=== PATIENT | female | born 1980 | race Caucasian/White ===

== ENCOUNTER → 2020-07-27 | Outpatient (REF) | payer BC ==
[2020-07-27 12:03] LABS: BASO % 0.7 % (0.0-1.0); EOS # 0.4 10^3/uL (0.0-0.5); HEMATOCRIT 45.4 % (36.0-47.0); HEMOGLOBIN 14.8 g/dl (12.0-15.5); LYMPH # 1.4 10^3/uL (1.5-5.0); LYMPH % 24.9 % (24.0-44.0); MEAN CORPUSCULAR HEMOGLOBIN 28.8 pg (27.0-33.0); MEAN CORPUSCULAR HGB CONC 32.6 g/dl (32.0-36.5); MEAN CORPUSCULAR VOLUME 88.5 fl (80.0-96.0); MONO # 0.4 10^3/uL (0.0-0.8); MONO % 7.2 % (2.0-8.0); NEUTROPHILS # 3.2 10^3/uL (1.5-8.5); NEUTROPHILS % 59.8 % (36.0-66.0); PLATELET COUNT, AUTOMATED 309 10^3/uL (150-450); RED BLOOD COUNT 5.13 10^6/uL (4.00-5.40); WHITE BLOOD COUNT 5.4 10^3/uL (4.0-10.0)
[2020-07-27 12:28] LABS: ERYTHROCYTE SEDIMENTATION RATE 14 mm/hr (0-20); HEMOGLOBIN A1c 6.1 %
[2020-07-27 12:44] LABS: ALT/SGPT 23 U/L (12-78); BILIRUBIN,TOTAL 0.3 MG/DL (0.2-1.0); BLOOD UREA NITROGEN 11 MG/DL (7-18); CALCIUM LEVEL 9.3 MG/DL (8.5-10.1); CARBON DIOXIDE LEVEL 29 MEQ/L (21-32); CHLORIDE LEVEL 105 MEQ/L (98-107); CHOLESTEROL LEVEL 225 MG/DL (<200); CHOLESTEROL RISK RATIO 4.591 (<5); CREATININE FOR GFR 0.59 MG/DL (0.55-1.30); FREE T4 0.96 NG/DL (0.76-1.46); GLOMERULAR FILTRATION RATE > 60.0 (>58); GLUCOSE, FASTING 88 MG/DL (70-100); HDL CHOLESTEROL 49 MG/DL (>40); LDL CHOLESTEROL 153 MG/DL (<100); NON-HDL-C 176 MG/DL; RHEUMATOID FACTOR QUANT < 10.0 IU/ML (<15.0); SODIUM LEVEL 141 MEQ/L (136-145); TOTAL 25(OH) VITAMIN D 20.2 NG/ML (30.0-100.0); TOTAL PROTEIN 7.4 GM/DL (6.4-8.2); TRIGLYCERIDES LEVEL 116 MG/DL (<150)
== END ==
LOC: M SFHCPLAZ 10:01
PROVIDERS: ATTEND Nurse Practitioner Family
DX: M06.9 Rheumatoid arthritis, unspecified (principal); Z13.228 Encounter for screening for other metabolic disorders; Z13.1 Encounter for screening for diabetes mellitus; Z13.220 Encounter for screening for lipoid disorders; E55.9 Vitamin D deficiency, unspecified

== ENCOUNTER → 2020-08-04 | Outpatient (CLI) | payer BC ==
--- NOTE | 2020-08-04 14:44 | REP ---
INDICATION: Z12.39 SCREENING MAMMO. COMPARISON: None. TECHNIQUE: MLO and CC views bilateral breasts performed with tomosynthesis. FINDINGS: There is moderate heterogeneous fibroglandular tissue scattered bilaterally. In the medial aspect of the right breast posteriorly there is an irregular asymmetric nodular opacity which measures approximately 2.1 cm in maximum diameter. No other mass or architectural distortion is seen. No clustered microcalcifications are seen. [place] breast density is B. IMPRESSION: BIRADS/ACR category 0, incomplete. The medial right breast posteriorly there is an irregular asymmetric nodular opacity 2.1 cm in diameter. Recommend spot compression views and ultrasound to further evaluate. This patient's Tyrer-Cuzick lifetime breast cancer risk assessment score is 13.3%. This mammogram was interpreted with the aid of an FDA-approved computer-aided detection system. The patient states she had a clinical breast exam in over 1 year ago. The patient letter being requested is M0. RECOMMENDATION: Recommend spot compression views and ultrasound right breast. <Electronically signed by Terry Carrillo > 08/04/20 [id number]
== END ==
LOC: M WHC 13:25
PROVIDERS: ATTEND Nurse Practitioner Family
DX: Z12.31 Encounter for screening mammogram for malignant neoplasm of breast (principal); N63.10 Unspecified lump in the right breast, unspecified quadrant

== ENCOUNTER → 2020-08-29 | Outpatient (CLI) | payer BC ==
--- NOTE | 2020-08-29 15:47 | REP ---
INDICATION: ADDITIONAL VIEWS BREAST; ADDITIONAL VIEWS RT BREAST. COMPARISON: 08/04/2020. TECHNIQUE: Spot compression views and mL tomographic sequence right breast performed, as well as focused right breast ultrasound. FINDINGS: Irregular 2 cm nodule is confirmed in the upper inner right breast. Focused right breast ultrasound in this region demonstrates an irregular hypoechoic nodule 2.0 x 1.0 x 1.1 cm. This is suspicious. Incidentally noted is a cyst at 12 o'clock measuring 7 x 3 x 7 mm. IMPRESSION: BIRADS/ACR category 4, suspicious. 2 cm irregular nodule appears to be solid by ultrasound, located in the upper inner right breast. Recommend ultrasound-guided biopsy with postprocedure mammogram. This mammogram was interpreted with the aid of an FDA-approved computer-aided detection system. The patient letter being requested is M4. RECOMMENDATION: Recommend ultrasound-guided biopsy right breast with postprocedure mammogram. <Electronically signed by Terry Carrillo > 08/29/20 [id number]
== END ==
LOC: M WHC 14:01
PROVIDERS: ATTEND Nurse Practitioner Family
DX: Z12.39 Encounter for other screening for malignant neoplasm of breast (principal); R92.8 Other abnormal and inconclusive findings on diagnostic imaging of breast

== ENCOUNTER → 2020-09-05 | Outpatient (REF) | payer BC | LOC: M PLALAB 14:52 | PROVIDERS: ATTEND Obstetrics & Gynecology | DX: Z12.4 Encounter for screening for malignant neoplasm of cervix (principal) ==

== ENCOUNTER → 2020-09-13 | Outpatient (CLI) | payer BC ==
[~2020-09-13] MED LIST: NAPR-1010 PO; PLAQ200T4 PO
[2020-09-13 09:07] VITALS: BP 110/76
--- NOTE | 2020-09-13 09:30 | REP ---
INDICATION: R92.8 ABN RT MAMMO,POST US GUIDED BIOPSY. COMPARISON: 08/29/2020. TECHNIQUE: ML and CC views right breast performed following ultrasound-guided biopsy of a nodule in medial right breast. FINDINGS: Biopsy clip is seen within the irregular nodule in the medial right breast. IMPRESSION: Successful ultrasound-guided biopsy of right breast nodule. RECOMMENDATION: Clinical follow-up. <Electronically signed by Terry Carrillo > 09/13/20 [id number]
--- NOTE | 2020-09-13 17:12 | REP ---
INDICATION: R92.8 ABN RT MAMMO,US GUIDED BIOPSY. COMPARISON: None. TECHNIQUE: The procedure was performed under the direct supervision of Dr. Carrillo. The patient has a history of a 2 x 1 x 1.1 cm irregular hypoechoic nodule in the upper inner right breast seen on a previous ultrasound dated 08/29/2020. The risks and benefits of the procedure were explained to the patient and informed consent was obtained. The right breast nodule was localized using ultrasound guidance. The skin was prepped and draped in a sterile fashion. 1% Xylocaine was used as a local anesthetic. Using ultrasound guidance a 14 gauge coaxial needle biopsy system was inserted and6 core biopsy samples were obtained. A marker clip (HydroMARK shape 3) was placed at the biopsy site The patient tolerated the procedure well and there were no immediate complications. After the appropriate amount of monitored convalescence, the patient was discharged from the department. FINDINGS: None IMPRESSION: Ultrasound-guided right breast biopsy with clip placement. (HydroMARK shape 3) <Electronically signed by Derrick Franklin > 09/13/20 [id number] <Electronically signed by Terry Carrillo > 09/13/20 [id number]
== END ==
LOC: M WHCPRO 06:51
PROVIDERS: ATTEND Nurse Practitioner Family
DX: D05.11 Intraductal carcinoma in situ of right breast (principal)

== ENCOUNTER → 2020-09-28 | Outpatient (CLI) | payer BC ==
[~2020-09-28] MED LIST changes: +LIDOCAINE 1% MDV 20ML VIAL As Ordered ONE; +MIDAZOLAM INJ 2MG/2ML VIAL (J2250 PER 1MG) As Ordered ONE; +ceFAZolin 2 GM/D5W 50 ML IV BAG (J0690 PER 500MG) As Ordered ONE; +diphenhydrAMINE 50MG/ML VIAL (J1200) As Ordered ONE; +fentaNYL 100 MCG/2 ML INJECTION (J3010) As Ordered ONE
--- NOTE | 2020-09-28 14:03 | IRHP ---
[facility] IR Pre-Procedure H & P General Date of Service: September 28, 2020 Procedure: Same Day Surgery Interval History and Physical I have seen the patient and reviewed last H & P performed within 30 days. There is no significant interval change. History of Present Illness Chief Complaint The patient is a 40-year-old female admitted with a reason for visit of Breast Ca. PRE-PROCEDURE DIAGNOSIS: Right-sided breast cancer HEART: Normal rate. LUNGS: Normal breathing at rest. ASA Classification ASA Classification: II-Mild systemic disease Mallampati Score: II NPO: Yes Problems with prior sedation: No Obstructive Sleep Apnea: No Plan moderate sedation Allergies Coded Allergies: No Known Allergies (Verified , 09/13/20) Home Medications Miscellaneous Medications Hydroxychloroquine Sulfate (Plaquenil), 200 MG PO, (Reported) Naproxen Sodium (Naproxen Sodium), 220 MG PO, (Reported) VS, I&O, 24H, Fishbone Vital Signs/I&O Vital Signs Date Time Temp Pulse Resp B/P (MAP) Pulse Ox O2 Delivery O2 Flow Rate FiO2 09/28/20 13:30 97.0 84 20 98 Room Air BREONNA ORELLANA MD September 28, 2020 14:03
--- NOTE | 2020-09-28 14:54 | IRPON ---
IR Postoperative Note Date Of Procedure: September 28, 2020 Time Of Procedure: 14:51 IR Postoperative Note IR Ultrasound and fluoroscopy guided port placement. IR Ultrasound of the neck. IR Moderate sedation. Clinical indication: Right-sided breast cancer. Physician: Dr. Mann. Procedure: The patient was advised of the benefits, risks, and alternatives of the procedure and informed consent was obtained. A time-out was performed with verification of the patient's name, MRN, site of procedure and type of procedure to be performed. The patient was positioned in the supine position on the angiographic table. The site was prepped and draped in the usual sterile fashion. Moderate sedation was performed by the physician including the presence of an independent trained RN, who assisted and monitored the patient's level of consciousness and physiologic status. Following the administration of fentanyl and Versed , the physician spent 45 minutes of continuous face to face time with the patient. Ultrasound of the neck reveals a patent and compressible left internal jugular vein. A mophead sewer radiograph reveals no gross abnormality. The neck and anterior chest wall were anesthetized with lidocaine. The left internal jugular vein was accessed using a microintroducer needle under ultrasound guidance, via a lateral approach. An 018 wire was advanced into the superior vena cava, the needle was removed and a microsheath was placed. An Amplatz wire was then passed into the inferior vena cava. An incision at the internal jugular vein access site and anterior chest wall were made using a scalpel. An incision was made at the anterior chest wall. A small pocket was created using a combination of blunt and sharp dissection. A tunneling device was then used to pass the catheter from the pocket to the neck puncture site. An 8- [place] Ookbee Smart power port was then positioned in the pocket. The catheter was then measured and cut. The introducer sheath was exchanged for a peel-away sheath. The catheter was passed through the peel-away sheath into the internal jugular vein and the peel-away sheath was removed. The port tip was positioned at the cavoatrial junction. The port was then accessed with a Reilly needle. The port flushes and aspirates well. The puncture site in the neck was closed. The chest wall incision was then closed with 2-0 Vicryl and 4-0 Monocryl. Glue and Steri- Strips were applied. A sterile dressing was then applied. The patient tolerated the procedure well and was returned to the PRU in stable condition. Estimated blood loss: <5 ml. Complications: None. Conclusion: 1. Successful placement of an 8-[place] Angio dynamics Smart power port via the left internal jugular vein. The port is ready for immediate use. 2. Patient to follow up in IR clinic in 2 weeks. Thank you for this referral. BREONNA MANN MD September 28, 2020 14:54
[2020-09-28 16:51] VITALS: BP 104/55
== END ==
LOC: M IRPRO 13:05
PROVIDERS: ATTEND Specialist
DX: C50.911 Malignant neoplasm of unspecified site of right female breast (principal)
CPT/HCPCS: 36561; 99152; 99153; C1769; C1788; C1894; J0690; J1200; J1642; J1644; J2250; J3010

== ENCOUNTER → 2020-10-12 | Outpatient (CLI) | payer BC ==
[~2020-10-12] MED LIST changes: -LIDOCAINE 1% MDV 20ML VIAL As Ordered ONE; -MIDAZOLAM INJ 2MG/2ML VIAL (J2250 PER 1MG) As Ordered ONE; -ceFAZolin 2 GM/D5W 50 ML IV BAG (J0690 PER 500MG) As Ordered ONE; -diphenhydrAMINE 50MG/ML VIAL (J1200) As Ordered ONE; -fentaNYL 100 MCG/2 ML INJECTION (J3010) As Ordered ONE
--- NOTE | 2020-10-13 14:43 | ECHO ---
ECHOCARDIOGRAM DATE OF PROCEDURE: 10/12/2020 Age: 40 Gender: Height: Weight: REFERRING PROVIDER: Dr. Pineda. PATIENT LOCATION: Outpatient. REASON FOR THE TESTING: Chemotherapy and drug monitoring. 2D MEASUREMENTS: IVS 0.9 cm LV 4.8 cm LVPW 0.9 cm LA 3.7 cm Aorta 3.2 cm DOPPLER MEASUREMENT Peak velocity across the LVOT 1.1 m/s Mitral E 0.7 Mitral A 0.5 with a ratio of 1.4 2D COMMENTS: 1. Normal left ventricular size, wall thickness, and normal global left ventricular systolic function. The estimated left ventricular systolic ejection fraction is 60 to 65%. 2. Normal left atrium. Normal right atrium and right ventricle. 3. The atrial septum appeared to be normal without evidence of defect or shunt. 4. Normal aortic root. 5. No pericardial effusion seen. 6. Normal aortic valve, mitral valve, tricuspid valve, and pulmonic valve. The proximal pulmonary artery branches also appeared to be normal. 7. The inferior vena cava was not well visualized. DOPPLER: Doppler detects trace mitral regurgitation, trace tricuspid regurgitation, and trace pulmonic regurgitation. Assessment of the left ventricular diastolic function appeared to be normal. IMPRESSION: 1. Normal global left ventricular systolic and diastolic function. 2. Trace mitral regurgitation. 3. Trace tricuspid regurgitation. Could not assess pulmonary artery systolic pressure. 4. Trace pulmonic regurgitation. 5. The inferior vena cava was not well visualized.
== END ==
LOC: M CARPUL 14:24
PROVIDERS: ATTEND Specialist
DX: C50.811 Malignant neoplasm of overlapping sites of right female breast (principal)

== ENCOUNTER 2020-11-19 02:53 | Emergency (ER) | payer BC ==
[~2020-11-19] VITALS: Ht 172.7 cm; Wt 97.3 kg
[2020-11-19 03:48] LABS: HEMATOCRIT 38.4 % (36.0-47.0); HEMOGLOBIN 12.8 g/dl (12.0-15.5); MEAN CORPUSCULAR HGB CONC 33.3 g/dl (32.0-36.5); MEAN CORPUSCULAR VOLUME 86.9 fl (80.0-96.0); PLATELET COUNT, AUTOMATED 195 10^3/uL (150-450); RED BLOOD COUNT 4.42 10^6/uL (4.00-5.40)
[2020-11-19 03:50] LABS: WHITE BLOOD COUNT 35.2 10^3/uL (4.0-10.0)
[2020-11-19 04:17] LABS: BLOOD UREA NITROGEN 9 MG/DL (7-18); CALCIUM LEVEL 8.6 MG/DL (8.5-10.1); CARBON DIOXIDE LEVEL 24 MEQ/L (21-32); CHLORIDE LEVEL 108 MEQ/L (98-107); CK-MB VALUE MASS < 1.0 NG/ML (<3.6); CPK CREATINE PHOSPHOKINASE 38 U/L (26-192); CREATININE FOR GFR 0.66 MG/DL (0.55-1.30); GLOMERULAR FILTRATION RATE > 60.0 (>58); GLUCOSE, FASTING 124 MG/DL (70-100); MB/CK RELATIVE INDEX 2.63 (< OR =4); SODIUM LEVEL 141 MEQ/L (136-145); TROPONIN I < 0.02 NG/ML (< 0.10)
[2020-11-19 04:28] LABS: ANISOCYTOSIS 1+; ATYPICAL LYMPH 1 % (0-5); LYMPHOCYTES 7 % (16-44); MONOCYTES 4 % (0-5); MYELOCYTES 2 % (0-0); NEUTROPHILS 83 % (28-66); PLATELET ESTIMATE NORMAL (NORMAL)
[2020-11-19 04:48] LABS: ALBUMIN 3.5 GM/DL (3.2-5.2); ALT/SGPT 39 U/L (12-78); BILIRUBIN,DIRECT < 0.1 MG/DL (0.0-0.2); BILIRUBIN,TOTAL 0.2 MG/DL (0.2-1.0); TOTAL PROTEIN 6.8 GM/DL (6.4-8.2)
[2020-11-19] MEDS ORDERED: ISOVUE-370 76% 100ML VIAL As Ordered ONE (05:56)
[2020-11-19 07:23] LABS: CPK CREATINE PHOSPHOKINASE 31 U/L (26-192); MB/CK RELATIVE INDEX 3.23 (< OR =4); TROPONIN I < 0.02 NG/ML (< 0.10)
--- NOTE | 2020-11-19 08:02 | REPVR ---
PROCEDURE INFORMATION: Exam: XR Chest Exam date and time: 11/19/2020 4:04 AM Age: 40 years old Clinical indication: Other: Chest pain TECHNIQUE: Imaging protocol: XR of the chest. Views: 1 view. COMPARISON: No relevant prior studies available. FINDINGS: Tubes, catheters and devices: Port-A-Cath on the left with the tip in the distal SVC. Lungs: Unremarkable. No consolidation. Pleural spaces: Unremarkable. No pleural effusion. No pneumothorax. Heart/Mediastinum: Unremarkable. No cardiomegaly. Bones/joints: Unremarkable. IMPRESSION: No acute infiltrates. Electronically signed by: Ron Bearden On 11/19/2020 08:02:13 AM
--- NOTE | 2020-11-19 08:08 | REPVR ---
PROCEDURE INFORMATION: Exam: CTA Chest With Contrast Exam date and time: 11/19/2020 5:51 AM Age: 40 years old Clinical indication: Chest discomfort; Patient HX: HX breast CA; Additional info: Cancer, chest discomfort TECHNIQUE: Imaging protocol: Computed tomographic angiography of the chest with contrast. 3D rendering (Not supervised by radiologist): MIP and/or 3D reconstructed images were created by the technologist. Radiation optimization: All CT scans at this facility use at least one of these dose optimization techniques: automated exposure control; mA and/or kV adjustment per patient size (includes targeted exams where dose is matched to clinical indication); or iterative reconstruction. Contrast material: ISO; Contrast volume: 75 ml; Contrast route: INTRAVENOUS (IV); COMPARISON: CR PORTABLE CHEST X-RAY 11/19/2020 3:37 AM FINDINGS: Tubes, catheters and devices: Left-sided Port-A-Cath with tip in the distal SVC. Pulmonary arteries: Normal. No pulmonary emboli. Aorta: Unremarkable. No aortic aneurysm. No aortic dissection. Bronchial tree: Visualized bronchial tree is unremarkable. Lungs: Circumscribed lung nodule in the posterior right upper lobe measuring 9 x 7.5 x 7 mm with eccentric calcification. (Series 401, image 73). No acute consolidation. Pleural spaces: Unremarkable. No pneumothorax. No pleural effusion. Heart: Unremarkable. No cardiomegaly. No pericardial effusion. Lymph nodes: Unremarkable. No enlarged lymph nodes. Bones/joints: Unremarkable. No acute fracture. Soft tissues: Unremarkable. IMPRESSION: 1. Negative for pulmonary emboli. 2. Circumscribed lung nodule in the posterior right upper lobe. Correlate with clinical history. Metastatic disease cannot be excluded. Electronically signed by: Ron Bearden On 11/19/2020 08:08:16 AM
[2020-11-19 08:31] VITALS: BP 107/59
--- NOTE | 2020-11-19 10:59 | ECGEPIP ---
[facility] - ED Test Date: 2020-11-19 Pat Name: BENITEZ MALONEY Department: Room: - Gender: Female Night Clerk: GUSTAVO : 1980 Requested By: ISHAAN Johnson Order Number: [id number] Reading MD: Brianda Boyer Measurements Intervals [place] Rate: 73 P: 61 MS: 144 QRS: 63 QRSD: 96 T: 75 QT: 424 QTc: 467 Interpretive Statements Normal sinus rhythm NSTTW abnormalities No prior Electronically Signed on 11-19-2020 10:59:19 EDT by Brianda Boyer
== END 2020-11-19 08:44 | disposition home or self-care (01) ==
LOC: M ED 02:53
DX: R00.2 Palpitations (principal); F17.200 Nicotine dependence, unspecified, uncomplicated; R91.1 Solitary pulmonary nodule
CPT/HCPCS: 36415; 71045; 71275; 80048; 80076; 81001; 82550; 82553; 83735; 84484; 85025; 87040; 87798; 93005; 93041; 94760; 99284; Q9967

== ENCOUNTER 2020-11-28 22:06 | Inpatient (IN) | payer BC ==
[~2020-11-28] VITALS: Ht 172.7 cm; Wt 98.0 kg
[2020-11-29 04:57] LABS: HEMATOCRIT 39.5 % (36.0-47.0); HEMOGLOBIN 12.9 g/dl (12.0-15.5); MEAN CORPUSCULAR HEMOGLOBIN 28.4 pg (27.0-33.0); MEAN CORPUSCULAR HGB CONC 32.7 g/dl (32.0-36.5); PLATELET COUNT, AUTOMATED 267 10^3/uL (150-450); RED BLOOD COUNT 4.54 10^6/uL (4.00-5.40)
[2020-11-29 04:58] LABS: WHITE BLOOD COUNT 27.4 10^3/uL (4.0-10.0)
[2020-11-29 05:09] LABS: ATYPICAL LYMPH 9 % (0-5); LYMPHOCYTES 6 % (16-44); MONOCYTES 10 % (0-5); MYELOCYTES 5 % (0-0); NEUTROPHILS 68 % (28-66)
[2020-11-29 05:10] LABS: ANISOCYTOSIS 1+; PLATELET ESTIMATE NORMAL (NORMAL); POLYCHROMASIA 1+
[2020-11-29 05:28] LABS: ALBUMIN 3.9 GM/DL (3.2-5.2); ALT/SGPT 29 U/L (12-78); BILIRUBIN,DIRECT < 0.1 MG/DL (0.0-0.2); BILIRUBIN,TOTAL 0.5 MG/DL (0.2-1.0); BLOOD UREA NITROGEN 5 MG/DL (7-18); CALCIUM LEVEL 8.9 MG/DL (8.5-10.1); CARBON DIOXIDE LEVEL 30 MEQ/L (21-32); CHLORIDE LEVEL 104 MEQ/L (98-107); CREATININE FOR GFR 0.62 MG/DL (0.55-1.30); GLOMERULAR FILTRATION RATE > 60.0 (>58); GLUCOSE, FASTING 110 MG/DL (70-100); LIPASE 54 U/L (73-393); POTASSIUM SERUM 4.5 MEQ/L (3.5-5.1); SODIUM LEVEL 139 MEQ/L (136-145); TOTAL PROTEIN 7.5 GM/DL (6.4-8.2)
[2020-11-29] MEDS ORDERED: KETOROLAC 30 MG/ML 1ML VIAL IV ONE (06:30)
[2020-11-29] MEDS ORDERED: NS 1,000 ML IV ONE (06:35)
[2020-11-29] MEDS ORDERED: ISOVUE-370 76% 100ML VIAL As Ordered ONE (06:57)
--- NOTE | 2020-11-29 08:35 | REP ---
INDICATION: RLQ pain, nausea and vomiting. COMPARISON: None. TECHNIQUE: Helical scanning was acquired and 4 mm axial images are re-formatted. Coronal and sagittal MPR images were generated and reviewed. The contrast enhancement dose is 100 mL of intravenous Isovue 370. FINDINGS: Preliminary digital box spring maker radiograph is unremarkable. The lung bases are clear on axial CT images. There is mild diffuse fatty infiltration of the liver. No focal liver lesion is seen. The liver is mildly enlarged with a midclavicular vertical span of 18.0 cm. The spleen is homogeneous in texture and also mildly enlarged measuring 14.4 cm in greatest diameter. Normal adrenal glands are observed. There is an accessory splenule along the medial and inferior border of the spleen. No abnormality is noted in the pancreas or the gallbladder. No retroperitoneal mass or adenopathy is seen. The kidneys enhance symmetrically and are morphologically intact. The appendix is abnormal, fluid distended with moderate Ritu appendiceal inflammatory change and some fluid in the pericolic gutter on the right. There is mural thickening in the appendix. There is no evidence of free air or established abscess. Small and large bowel loops are otherwise unremarkable. No uterine or ovarian abnormality is seen. No abdominal wall defect or bony destructive lesion. IMPRESSION: CT findings of acute appendicitis with a dilated thick-walled inflamed appendix with moderate periappendiceal edema and mild right pericolic gutter fluid. No abscess or free air. <Electronically signed by Flo Locke > 11/29/20 [id number]
[2020-11-29] MEDS ORDERED: PIPERACILLIN/TAZOBACTAM SOD 3.375 GM in D5W MINI-BAG PLUS 50 ML IV ONE (08:40)
[2020-11-29] MEDS ORDERED: PROC10TA4 PO (09:36)
[2020-11-29] MEDS ORDERED: LORA-930 PO (09:36)
[2020-11-29] MEDS ORDERED: COLA100C5 PO (09:36)
[2020-11-29] MEDS ORDERED: NICO2GUM MT (09:36)
[2020-11-29] MEDS ORDERED: ONDA8TAB10 PO (09:36)
[2020-11-29] MEDS ORDERED: NICO1DIS12 TD (09:36)
[2020-11-29] MEDS ORDERED: HOME MED LIST COMPLETE! XX SCH (09:40)
[2020-11-29 09:53] LABS: RSV AMPLIFICATION NEGATIVE (NEGATIVE)
[2020-11-29] MEDS ORDERED: MORPHINE 4 MG/ML 1ML VIAL/SYRINGE (J2270) IV PRN (10:40)
[2020-11-29] MEDS ORDERED: ONDANSETRON 4MG/2ML VIAL IV PRN ×2 (10:40→18:30)
--- NOTE | 2020-11-29 10:47 | CR.PDOC ---
General Surgery Consultation Date of Consultation 11/29/20 History and Physical CONSULT REPORT FOR: [Dr. Maier] REASON FOR CONSULTATION: [Went to ER regarding abdominal pain] HISTORY OF PRESENT ILLNESS: [Patient appears tired but without guarding. Colicky pain began yesterday at 11AM while at work, pain remained constant and worsened until she began vomiting and localized a severe pain in the RLQ. Rates pain at 7/10, with Toradol in the ER around a 3. ] PAST MEDICAL HISTORY: 1. [Currently being treated for stage II breast cancer, pre-diabetes and pre- atrial contractions, nodule found on lung]. PAST SURGICAL HISTORY: INCLUDES: 1. [Oophorectomy, multiple ovarian cyst removals, fallopian tubes removed, 2x uterine ablations]. PREVIOUS ANESTHESIA REACTIONS: ALLERGIES: Please see below. FAMILY HISTORY: . HOME MEDICATIONS: Toradol for pain in ER, currently on chemotherapy, Zofran, loratidine, OTC stool softener, nicotine patch REVIEW OF SYSTEMS: GENERAL: [Denies chills, reports weight gain, reports feeling febrile yesterd ay]. HEENT: [Denies blurred vision and double vision. Denies ear symptoms. Denies hoarseness]. NECK: Denies any neck pain]. CARDIOVASCULAR: [Denies chest pain and palpitations]. MUSCULOSKELETAL: [Denies arthralgias, back pain and thrombophlebitis]. SKIN: [Denies rash]. NEUROLOGIC: [Denies headache, stroke and transient ischemic attack]. PSYCHIATRIC: [Denies anxiety and depression]. ENDOCRINE: [Denies thyroid disease]. HEMATOLOGY/ONCOLOGY: [Denies bleeding or clotting disorder]. HEART: [Denies any chest pains, palpitations, paroxysmal dyspnea, orthopnea]. PULMONARY: [Denies chronic cough, dyspnea and wheezing]. GASTROINTESTINAL: [Denies rectal bleeding, family history of colon cancer, const ipation, diarrhea, dysphagia, heartburn and jaundice]. GENITOURINARY: [Denies dysuria, frequency, hematuria and nocturia]. ENDOCRINE: [Denies polydipsia, polyphagia, polyuria, heat or cold intolerance]. INFECTIOUS: [Denies any recent upper respiratory tract infection, UTI, need for use of antibiotics]. NUTRITION: [Reports good appetite]. PHYSICAL EXAMINATION: VITALS SIGNS: Please see below. GENERAL APPEARANCE:[Patient seen, laying in bed, awake, alert, and oriented. Comfortable, in no acute distress]. SKIN: [Warm and moist]. HEENT: [Normocephalic, atraumatic. [place] palpebral conjunctiva, anicteric sclerae. Lips and mucosa appear moist]. NECK: [Supple, no thyromegaly. No obvious jugular venous distention]. LUNGS: [Clear to auscultation bilaterally. No wheezing appreciated]. HEART: [No chest wall abnormalities. Regular rate and rhythm with no murmurs appreciated]. ABDOMEN: Abdomen is soft and tender. Diminished bowel sounds in lower quadrants, pain elicitied upon percussion localized to RLQ. Pain in RLQ with palpation and (+) for Guillaume's sign. EXTREMITIES: [Extremities have no deformities. No edema identified] ANCILLARIES: . LABORATORY DATA: Please see below. IMAGING STUDIES: . IMPRESSION AND PLAN: [Appendicitis requiring a laparoscopic appendectomy.]. Vital Signs Vital Signs Date Time Temp Pulse Resp B/P (MAP) Pulse Ox O2 Delivery O2 Flow Rate FiO2 11/29/20 06:53 11/29/20 02:30 97.9 94 18 97 Room Air Laboratory Data Labs 24H Laboratory Tests 2 11/29/20 04:41: Immature Granulocyte % (Auto) , Neutrophils (%) (Auto) , Nucleated Red Blood Cells % (auto) 0.2H, Neutrophils 68H, Band Neutrophils 2, Lymphocytes (Manual) 6L, Monocytes (Manual) 10H, Myelocytes 5H, Atypical Lymphocytes 9H, Polychromasia 1+, Anisocytosis 1+, Platelet Estimate NORMAL, Urine Color YELLOW, Urine Appearance CLEAR, Urine pH 6.0, Urine Specific [place] 1.008, Urine Protein NEGATIVE, Urine Glucose (UA) NEGATIVE, Urine Ketones NEGATIVE, Urine Blood 1+H, Urine Nitrite NEGATIVE, Urine Bilirubin NEGATIVE, Urine Urobilinogen 0.2, Urine Leukocyte Esterase NEGATIVE, Urine WBC (Auto) 0, Urine RBC (Auto) 2, Urine Hyaline Casts (Auto) 0, Urine Bacteria (Auto) NEGATIVE, Urine Squamous Epithelial Cells 1, Urine Sperm (Auto) , Anion Gap 5L, Glomerular Filtration Rate > 60.0, Calcium Level 8.9, Total Bilirubin 0.5, Direct Bilirubin < 0.1, Aspartate Amino Transf (AST/SGOT) 14, Alanine Aminotransferase (ALT/SGPT) 29, Alkaline Phosphatase 97, Total Protein 7.5, Albumin 3.9, Albumin/Globulin Ratio 1.1L, Lipase 54L 11/29/20 08:43: Coronavirus (COVID-19)(PCR) NEGATIVE, Influenza Type A (RT-PCR) NEGATIVE, Influenza Type B (RT-PCR) NEGATIVE, Respiratory Syncytial Virus (PCR) NEGATIVE CBC/BMP Laboratory Tests 11/29/20 04:41 Home Medications Scheduled Docusate Sodium (Colace) 100 Mg Capsule, 100 MG PO QHS, (Reported) Loratadine (Loratadine) 10 Mg Tablet, 10 MG PO QHS, (Reported) Nicotine (Nicotine Patch) 21 Mg Patch.td24, 21 MG TD DAILY, (Reported) Scheduled PRN Nicotine Polacrilex (Nicotine Gum) 2 Mg Gum, 2 MG MT PRN PRN for NICOTINE WITHDRAWAL, (Reported) Ondansetron HCl (Ondansetron HCl) 8 Mg Tablet, 8 MG PO TID PRN for NAUSEA OR VOMITING, (Reported) Prochlorperazine Maleate (Prochlorperazine Maleate) 10 Mg Tablet, 10 MG PO Q6H PRN for NAUSEA OR VOMITING, (Reported) Allergies Coded Allergies: No Known Allergies (Verified , 09/13/20) [facility] Nov 29, 2020 10:47
[2020-11-29] MEDS: LR 1,000 ML IV SCH ×2 (11:47→20:36)
[2020-11-29] MEDS: PANTOPRAZOLE 40MG VIAL (C9113 PER 1) IV SCH (11:48)
--- NOTE | 2020-11-29 12:22 | HPEPDOC ---
General Surgery H&P Date of Admission Nov 29, 2020 Attending Physician: SAMSON TRIPP MD History and Physical CHIEF COMPLAINT: Abdominal pain HISTORY OF PRESENT ILLNESS: Patient reports he went to the emergency room at 9:30 PM last night but spent the night in the waiting room and was seen about 6 in the morning. She reports initial crampy periumbilical pain at about 11 in the morning which progressed and later became constant, sharp over the inside of her right hip area associated with nausea, 1 episode of vomiting. Denies fevers or chills. Denies prior episodes of similar symptoms or any sick contacts. She has a significant history for right breast cancer for which she is getting neoadjuvant chemo therapy. Last chemotherapy was in November 18. She also received Neupogen at that time. Apparently was here also last week for palpitations found to have PACs on EKG ALLERGIES: Please see below. HOME MEDICATIONS: Please see below. PAST MEDICAL HISTORY: 1. Right breast cancer, on neoadjuvant chemotherapy 2. . PAST SURGICAL HISTORY: 1. Laparoscopic right oophorectomy, salpingectomy bilaterally 2. Left IJ [id number] PERSONAL/SOCIAL HISTORY: Reports still smoking, was 1 pack/day smoker, trying to quit. Occasional alcohol use, denies recreational drug use. REVIEW OF SYSTEMS: GENERAL: Symptoms are of acute onset. She is undergoing chemotherapy but denies any serious side effects from this.. HEENT: Denies problems with vision or hearing. NECK: Denies any neck pain. CARDIOVASCULAR: Reports palpitations. MUSCULOSKELETAL: Denies arthralgias, back pain and thrombophlebitis. SKIN: Denies rash. NEUROLOGIC: Denies headaches. PSYCHIATRIC: Denies anxiety and depression. ENDOCRINE: Denies thyroid disease. HEMATOLOGY/ONCOLOGY: Denies any bleeding or clotting disorder. PULMONARY: Denies chronic cough, dyspnea and wheezing. GASTROINTESTINAL: See HPI. GENITOURINARY: Denies dysuria, frequency, hematuria and nocturia. ENDOCRINE: Denies polydipsia, polyphagia, polyuria, heat or cold intolerance. INFECTIOUS: Denies any recent upper respiratory tract infection, UTI, need for use of antibiotics. NUTRITION: Reports fair appetite. PHYSICAL EXAMINATION: VITAL SIGNS: Please see below. GENERAL APPEARANCE: Overall comfortable in appearance. Mild discomfort when changing position awake, alert, oriented. HEENT: Patient is bald (chemo related) otherwise atraumatic, no facial lesions. CHEST: No chest wall abnormalities. Normal respiratory motion/effort. NECK: Supple. No thyromegaly. No lymphadenopathies. LUNGS: Lung sounds are clear to auscultation bilaterally. No wheezing appreci ated. HEART: No chest wall abnormalities. Heart rate and rhythm are regular with no murmurs. ABDOMEN: Abdomen is obese, soft, minimally distended. Tender over the right lower quadrant area with mild guarding. SKIN: Warm and dry. EXTREMITIES: Extremities have no deformities. No edema identified. NEUROLOGICAL:. ANCILLARIES:. LABORATORY DATA: Please see below. MICROBIOLOGY: Please see below. IMAGING: I reviewed the images and the CT abdomen and pelvis and this shows a thickened appendix with prominent periappendiceal inflammation and fluid IMPRESSION AND PLAN: Acute appendicitis with localized peritonitis Markedly elevated WBC though this may be related to her receiving Neupogen. Patient history and examination as well as relevant studies consistent with acute appendicitis. There is a good amount of inflammation, Initial swelling, inflammation of soft tissues as well as free fluid in appendix so there is a chance of perforation at this time. She is not showing any severe inflammatory response. She does have a markedly elevated leukemoid reaction either from the ongoing inflammation or just the side effect of the Neupogen that she received a week ago. In any case she remains to be immunocompromised thus will need antibiotics after the appendectomy. I plan to bring her to the operating room once the operating room is available for laparoscopic appendectomy. I discussed with the patient the details of the proposed procedure, the benefits of performing the procedure, the most common risks on doing the procedure. This may include risks of bleeding, infection or subsequent abscess formation, injury to nearby structures including bowels, blood vessels. Consent was obtained from the patient. I will keep her n.p.o. and start her on Zosyn 3.375 g IV every 6 hours perioperatively Vital Signs Vital Signs Date Time Temp Pulse Resp B/P (MAP) Pulse Ox O2 Delivery O2 Flow Rate FiO2 11/29/20 06:53 11/29/20 02:30 97.9 94 18 97 Room Air Laboratory Data Labs 24H Laboratory Tests 2 11/29/20 04:41: Immature Granulocyte % (Auto) , Neutrophils (%) (Auto) , Nucleated Red Blood Cells % (auto) 0.2H, Neutrophils 68H, Band Neutrophils 2, Lymphocytes (Manual) 6L, Monocytes (Manual) 10H, Myelocytes 5H, Atypical Lymphocytes 9H, Polychromasia 1+, Anisocytosis 1+, Platelet Estimate NORMAL, Urine Color YELLOW, Urine Appearance CLEAR, Urine pH 6.0, Urine Specific [place] 1.008, Urine Protein NEGATIVE, Urine Glucose (UA) NEGATIVE, Urine Ketones NEGATIVE, Urine Blood 1+H, Urine Nitrite NEGATIVE, Urine Bilirubin NEGATIVE, Urine Urobilinogen 0.2, Urine Leukocyte Esterase NEGATIVE, Urine WBC (Auto) 0, Urine RBC (Auto) 2, Urine Hyaline Casts (Auto) 0, Urine Bacteria (Auto) NEGATIVE, Urine Squamous Epithelial Cells 1, Urine Sperm (Auto) , Anion Gap 5L, Glomerular Filtration Rate > 60.0, Calcium Level 8.9, Total Bilirubin 0.5, Direct Bilirubin < 0.1, Aspartate Amino Transf (AST/SGOT) 14, Alanine Aminotransferase (ALT/SGPT) 29, Alkaline Phosphatase 97, Total Protein 7.5, Albumin 3.9, Albumin/Globulin Ratio 1.1L, Lipase 54L 11/29/20 08:43: Coronavirus (COVID-19)(PCR) NEGATIVE, Influenza Type A (RT-PCR) NEGATIVE, Influenza Type B (RT-PCR) NEGATIVE, Respiratory Syncytial Virus (PCR) NEGATIVE CBC/BMP Laboratory Tests 11/29/20 04:41 Home Medications Scheduled Docusate Sodium (Colace) 100 Mg Capsule, 100 MG PO QHS, (Reported) Loratadine (Loratadine) 10 Mg Tablet, 10 MG PO QHS, (Reported) Nicotine (Nicotine Patch) 21 Mg Patch.td24, 21 MG TD DAILY, (Reported) Scheduled PRN Nicotine Polacrilex (Nicotine Gum) 2 Mg Gum, 2 MG MT PRN PRN for NICOTINE WITHDRAWAL, (Reported) Ondansetron HCl (Ondansetron HCl) 8 Mg Tablet, 8 MG PO TID PRN for NAUSEA OR VOMITING, (Reported) Prochlorperazine Maleate (Prochlorperazine Maleate) 10 Mg Tablet, 10 MG PO Q6H PRN for NAUSEA OR VOMITING, (Reported) Allergies Coded Allergies: No Known Allergies (Verified , 09/13/20) A-FIB/CHADSVASC A-FIB History Current/History of A-Fib/PAF?: No Current PO Anticoag Therapy: No SAMSON TRIPP MD Nov 29, 2020 12:22
[2020-11-29] MEDS: PIPERACILLIN/TAZOBACTAM SOD 3.375 GM in D5W MINI-BAG PLUS 50 ML IV SCH ×2 (15:00→20:35)
[2020-11-29] MEDS ORDERED: LIDOCAINE 1% SDV 30ML VIAL As Ordered ONE (16:04)
[2020-11-29] MEDS ORDERED: BUPIVACAINE HCL 0.25% 30ML VIAL As Ordered ONE (16:04)
[2020-11-29] MEDS ORDERED: ZOSYN 3.375GM VIAL (J2543) As Ordered ONE (16:33)
[2020-11-29] MEDS ORDERED: MIDAZOLAM INJ 2MG/2ML VIAL (J2250 PER 1MG) As Ordered ONE (16:45)
[2020-11-29] MEDS ORDERED: fentaNYL 250 MCG/5 ML INJECTION (J3010) As Ordered ONE (16:45)
[2020-11-29] MEDS ORDERED: LIDOCAINE 2% 100MG/5ML SDV (FOR ANES.) As Ordered ONE (16:45)
[2020-11-29] MEDS ORDERED: ONDANSETRON 4MG/2ML VIAL As Ordered ONE (16:45)
[2020-11-29] MEDS ORDERED: ROCURONIUM BROMIDE 50 MG/5 ML VIAL As Ordered ONE ×2 (16:45→17:01)
[2020-11-29] MEDS ORDERED: propofoL 200 MG/20 ML VIAL As Ordered ONE (16:45)
[2020-11-29] MEDS ORDERED: dexameTHASONE 4 MG/ML 1ML VIAL (J1100 PER 1MG) As Ordered ONE (16:45)
[2020-11-29] MEDS ORDERED: SUGAMMADEX SODIUM 500 MG/5 ML VIAL (BRIDION) As Ordered ONE (16:45)
[2020-11-29] MEDS ORDERED: PHENYLephrine 500MCG 5ML (100MCG/ML) SYRINGE As Ordered ONE (16:46)
[2020-11-29] MEDS ORDERED: ACETAMINOPHEN 1000MG 100ML IV BTL (OFIRMEV) (J0131 PER 10MG) As Ordered ONE (17:02)
[2020-11-29] MEDS ORDERED: KETOROLAC 60MG 2ML VIAL As Ordered ONE (17:19)
[2020-11-29] MEDS ORDERED: PERCOCET 5MG/325MG TAB PO PRN (17:50)
[2020-11-29] MEDS ORDERED: LR 1,000 ML IV SCH (18:30)
[2020-11-29] MEDS ORDERED: oxyCODONE 5MG TAB PO PRN (18:30)
[2020-11-29] MEDS ORDERED: fentaNYL 100 MCG/2 ML INJECTION (J3010) IV PRN (18:30)
[2020-11-29 18:45] VITALS: BP 98/60
[2020-11-29 19:05] VITALS: BP 101/54
[2020-11-29 20:15] VITALS: BP 96/58
[2020-11-29] MEDS: LORATADINE 10 MG TAB PO SCH (20:35)
[2020-11-29] MEDS: KETOROLAC 30 MG/ML 1ML VIAL IV PRN (20:37)
[2020-11-29 21:15] VITALS: BP 95/58
--- NOTE | 2020-11-29 22:07 | ECGEPIP ---
[facility] Test Date: 2020-11-29 Pat Name: BENITEZ MALONEY Department: Room: [place] [address] Gender: Female Spine Nurse: ron : 1980 Requested By: SAMSON Shane Order Number: [id number] Reading MD: Ced Sierra Measurements Intervals [place] Rate: 102 P: 40 CA: 132 QRS: 67 QRSD: 90 T: 70 QT: 356 QTc: 463 Interpretive Statements Sinus tachycardia Low voltage QRS, chest leads Last tracing on 11/19/20, 3:21 No remarkable changes but faster heart rate Electronically Signed on 11-29-2020 22:07:16 EDT by Ced Sierra
[2020-11-29 22:15] VITALS: BP 98/60
[2020-11-30] MEDS: PIPERACILLIN/TAZOBACTAM SOD 3.375 GM in D5W MINI-BAG PLUS 50 ML IV SCH ×4 (02:42→21:03)
[2020-11-30 06:00] VITALS: BP 93/58
[2020-11-30 06:26] LABS: HEMATOCRIT 32.5 % (36.0-47.0); MEAN CORPUSCULAR HEMOGLOBIN 28.9 pg (27.0-33.0); MEAN CORPUSCULAR HGB CONC 32.9 g/dl (32.0-36.5); MEAN CORPUSCULAR VOLUME 87.8 fl (80.0-96.0); PLATELET COUNT, AUTOMATED 180 10^3/uL (150-450)
[2020-11-30 06:27] LABS: HEMOGLOBIN 10.7 g/dl (12.0-15.5); WHITE BLOOD COUNT 25.6 10^3/uL (4.0-10.0)
[2020-11-30 06:44] LABS: BLOOD UREA NITROGEN 6 MG/DL (7-18); CALCIUM LEVEL 8.1 MG/DL (8.5-10.1); CARBON DIOXIDE LEVEL 29 MEQ/L (21-32); CHLORIDE LEVEL 109 MEQ/L (98-107); CREATININE FOR GFR 0.52 MG/DL (0.55-1.30); GLOMERULAR FILTRATION RATE > 60.0 (>58); GLUCOSE, FASTING 104 MG/DL (70-100); POTASSIUM SERUM 4.1 MEQ/L (3.5-5.1); SODIUM LEVEL 143 MEQ/L (136-145)
[2020-11-30 07:16] LABS: ATYPICAL LYMPH 3 % (0-5); LYMPHOCYTES 8 % (16-44); METAMYELOCYTES 2 % (0-0); MONOCYTES 5 % (0-5); MYELOCYTES 6 % (0-0); NEUTROPHILS 74 % (28-66); PLATELET ESTIMATE NORMAL (NORMAL)
[2020-11-30 07:17] LABS: ANISOCYTOSIS 1+; PLATELET CLUMPS SMALL AMT; POLYCHROMASIA 1+
[2020-11-30] MEDS: PANTOPRAZOLE 40MG VIAL (C9113 PER 1) IV SCH (08:09)
[2020-11-30] MEDS: NICOTINE 21MG/24HR 1 EA TRANSDERMAL TD SCH (08:10)
[2020-11-30 10:00] VITALS: BP 102/66
--- NOTE | 2020-11-30 11:24 | IPNPDOC ---
Text Note Date of Service The patient was seen on 11/30/20. NOTE General surgery. Dr. Lee The patient is a 40-year-old female status post laparoscopic appendectomy for acute appendicitis 11/29/2020. This morning, the patient states she is feeling well, pain is controlled, sitting up in bed. Afebrile. VSS MMM Abdomen with surgical sites clean/dry/intact. WBC 25.6, hemoglobin 10.7, platelets 180. CRP 14.5 Assessment/plan. Acute appendicitis status post laparoscopic appendectomy 11/29/[address] Lee The patient is reviewed and examined as per Dr. Lee this morning. She has been afebrile since 1:30 PM 11/29. Reports pain is controlled. Tolerated clear liquids for breakfast today, advancing diet. IV Zosyn Monitor. Currently being treated for right breast cancer, receiving neoadjuvant chemotherapy, last chemotherapy 11/18/2020. Received Neupogen at that time as well. The patient has been afebrile since 1:30 PM yesterday. Continue to monitor. VS,Fishbone, I+O VS, Fishbone, I+O Laboratory Tests 11/30/20 05:59 Vital Signs Date Time Temp Pulse Resp B/P (MAP) Pulse Ox O2 Delivery O2 Flow Rate FiO2 11/30/20 10:00 97.5 82 18 102/66 (78) 96 Room Air 11/29/20 20:44 2.0 I&O- Last 24 Hours up to 6 AM 11/30/20 06:00 Intake Total 5039 ml Output Total 20 ml Balance 5019 ml Mabel Alvarado Nov 30, 2020 11:24
--- NOTE | 2020-11-30 11:45 | ROOPDOC ---
[facility] Report Of Operation Report of Operation DATE OF PROCEDURE: 11/29/20 PREPROCEDURE DIAGNOSES: Acute appendicitis. POSTPROCEDURE DIAGNOSES: Acute appendicitis involving the whole of the appendix, ischemic wall of the appendix. PROCEDURE PERFORMED: Laparoscopic appendectomy. SURGEON: Kulwant Lee MD ANESTHESIA: General endotracheal anesthesia. ESTIMATED BLOOD LOSS: Approximately 20 mL. COMPLICATIONS:none REMARKS: 40 F with 3 days abdominal pain, fever confirmed to have acute appendicitis on CT, WBC 27.4 FINDINGS: retrocecal appendix, inflamed throughout SPECIMENS REMOVED: appendix DESCRIPTION OF PROCEDURE: Patient has been given a dose of Zosyn perioperatively.Patient was brought to the operating room, placed supine on the table. Sequential compression device placed for DVT prophylaxis. General endotracheal anesthesia started. The abdomen prepped and draped in usual sterile fashion. After a surgical timeout, we began our surgery Entry into the abdomen done through an incision at the LUQ area. Veress needle inserted on a controlled fashion. Intra-abdominal placement confirmed with saline drop technique. CO2 insufflation started to a pressure of 15 mmHg. A 5 mm optical port was placed under direct vision of laparoscope just above the umbilicus. Insertion site was inspected for injury and none was found. She was placed on a Trendelenburg position the right side tilted to allow for better visualization of the appendix. Two 5 mm working ports were placed at the suprapubic area and left lower quadrant area under direct vision, an 8 mm port exchanged at the umbilical camera port site. Operative findings: The appendix is noted inflamed down to the base, with a retrocecal course. Exudates on the wall of the appendix. No definite area of perforaton but wall is very inflamed, friable. Small amount of reactive serous fluid on the gutter and pelvis. Fibrotic attachments of appendix to the cecum noted. The fibrous attachments of the appendix and cecum was divided both laterally and medially to follow the course of the appendix. The short and mesoappendix was divided using Harmonic scalpel down to the base. Due to the inflammation of the mesentery the appendicular artery was not fully sealed. This required placement of clips to control the appendicular artery. I continued freeing up the appendix down to the base. Base of the appendix seems to be quite adhered to the wall of the cecum which was also secondarily inflamed. There is a hard appendicolith at the base. I threaded the Endoloops past the appendicolith. The appendix was then divided. History of the above the centimeter or so of the appendix left but due to the configuration of the appendix with a retrocecal course and the chronic fibrous attachments and inflammation of the wall of the cecum, the rest of it is difficult to divide without dividing the cecum itself. The left lower portion of the appendix seems to be healthy. Stump appears healthy. Appendix was then delivered into an Endo Catch bag through the 8 mm umbilical port site. . After re-insufflation the surgical site was inspected for hemostasis, the visualized fluid collections irrigated and suctioned off until clear return. Surrounding areas of the abdomen and inspected for fluid co llections or signs of injury. The abdomen was deflated. All ports removed. The umbilical fascial defect repaired with 0 Vicryl in a mattress fashion. All skin incisions closed with 4-0 Monocryl in a subcuticular fashion. Steri-Strips and gauze dressing used for wound coverage. Patient was promptly awake and extubated and brought to recovery room stable. All counts of sponges and instruments verified to be correct. KULWANT LEE MD Nov 30, 2020 11:45
[2020-11-30] MEDS: KETOROLAC 30 MG/ML 1ML VIAL IV PRN (12:12)
[2020-11-30 14:00] VITALS: BP 101/65
[2020-11-30 18:00] VITALS: BP 99/64
[2020-11-30] MEDS: LORATADINE 10 MG TAB PO SCH (21:03)
[2020-11-30 22:00] VITALS: BP 99/62
[2020-12-01] MEDS: KETOROLAC 30 MG/ML 1ML VIAL IV PRN (01:47)
[2020-12-01] MEDS: PIPERACILLIN/TAZOBACTAM SOD 3.375 GM in D5W MINI-BAG PLUS 50 ML IV SCH ×2 (03:07→08:58)
[2020-12-01 06:00] VITALS: BP 100/59
[2020-12-01] MEDS: NICOTINE 21MG/24HR 1 EA TRANSDERMAL TD SCH (08:57)
[2020-12-01] MEDS: PANTOPRAZOLE 40MG VIAL (C9113 PER 1) IV SCH (08:58)
[2020-12-01] MEDS ORDERED: FLAG500T PO (09:24)
[2020-12-01] MEDS ORDERED: AUGM875T28 PO (09:24)
--- NOTE | 2020-12-01 15:01 | DS.PDOC ---
Discharge Summary General Date of Admission Nov 29, 2020 at 10:37 Date of Discharge 12/01/20 Discharge Summary General surgery. Dr. Lee PROCEDURES PERFORMED DURING STAY: status post laparoscopic appendectomy 11/29/[address] Lee ADMITTING DIAGNOSES: Acute appendicitis Right breast cancer, on neoadjuvant chemotherapy DISCHARGE DIAGNOSES: Acute appendicitis status post laparoscopic appendectomy 11/29/[address] Lee Right breast cancer, on neoadjuvant chemotherapy HISTORY OF PRESENT ILLNESS: The patient is a 40-year-old female admitted 11/29/2020 with abdominal pain found to have acute appendicitis. The patient is also noted to have a history of right breast cancer for which she is getting neoadjuvant chemotherapy with last chemotherapy 11/18/2020, also received Neup ogen at that time. HOSPITAL COURSE: The patient is status post laparoscopic appendectomy as per Dr. Lee 11/29/2020. Perioperatively the patient was continued on IV Zosyn. The patient was noted to have a temperature of 100.1 at 1330 on 11/29/2020 however otherwise the patient has been afebrile. Postoperatively the patient recovered well. Pain was well controlled. She was started on clear liquids on the morning of 11/30. Her diet was advanced. By the morning of 12/01/2020 she has remained afebrile. She was tolerating regular diet. She was up and around in the room and reported having a bowel movement. She was felt stable for discharge to finish a 7-day course of antibiotics as outpatient. DISCHARGE MEDICATIONS: Please see below. ALLERGIES: Please see below. PHYSICAL EXAMINATION ON DISCHARGE: VITAL SIGNS: Please see below. GENERAL: No acute distress out of bed in the room. HEENT: MMM CARDIOVASCULAR EXAMINATION: RRR RESPIRATORY EXAMINATION: Clear to auscultation ABDOMINAL EXAMINATION: Soft, nontender, nondistended all incisions C/D/I EXTREMITIES: No edema LABORATORY DATA: Please see below. DISCHARGE PLAN: Discharge home Regular diet No heavy pushing, pulling, lifting greater than 20 pounds for 2 weeks. Okay to shower, no bath Call back to the office with any changes or concerns, wound drainage, fevers, chills or increasing pain Augmentin 875 mg p.o. twice daily for an additional 6 days Flagyl 500 mg p.o. every 8 hours for an additional 6 days Tylenol or ibuprofen as needed. Follow-up with Dr. Lee in 2 weeks. DISPOSITION: Home, Self-Care. DISCHARGE CONDITION: Stable. TIME SPENT ON DISCHARGE: Greater than 30 minutes. Vital Signs/I&Os Vital Signs Date Time Temp Pulse Resp B/P (MAP) Pulse Ox O2 Delivery O2 Flow Rate FiO2 12/01/20 06:00 96.9 77 20 100/59 (73) 93 Room Air 11/30/20 09:00 2.0 I&O- Last 24 Hours up to 6 AM 12/01/20 05:59 Intake Total 1985 ml Balance 1985 ml Discharge Medications Scheduled Amoxicillin/Potassium Clav (Augmentin 875-125 Tablet) 1 Each Tablet, 1 TAB PO BID Docusate Sodium (Colace) 100 Mg Capsule, 100 MG PO QHS, (Reported) Loratadine (Loratadine) 10 Mg Tablet, 10 MG PO QHS, (Reported) Metronidazole (Flagyl) 500 Mg Tablet, 500 MG PO Q8H Nicotine (Nicotine Patch) 21 Mg Patch.td24, 21 MG TD DAILY, (Reported) Scheduled PRN Nicotine Polacrilex (Nicotine Gum) 2 Mg Gum, 2 MG MT PRN PRN for NICOTINE WITHDRAWAL, (Reported) Ondansetron HCl (Ondansetron HCl) 8 Mg Tablet, 8 MG PO TID PRN for NAUSEA OR VOMITING, (Reported) Prochlorperazine Maleate (Prochlorperazine Maleate) 10 Mg Tablet, 10 MG PO Q6H PRN for NAUSEA OR VOMITING, (Reported) Allergies Coded Allergies: No Known Allergies (Verified , 09/13/20) Mabel Alvarado Dec 01, 2020 15:01
== END 2020-12-01 10:45 | disposition home or self-care (01) | DRG 220 ==
LOC: M ED 22:06 → M ED INP 11-29 10:37 → ENRESERV 11-29 13:42 → M MS5PR 11-29 14:46
PROVIDERS: ADMIT Surgery; ATTEND Surgery
PROC: 0DT Gastrointestinal System, Resection (ICD-10-PCS; principal; 2020-11-29 15:45)
DX: K35.80 Unspecified acute appendicitis (principal); C50.919 Malignant neoplasm of unspecified site of unspecified female breast; Z92.21 Personal history of antineoplastic chemotherapy; F17.200 Nicotine dependence, unspecified, uncomplicated; Z79.899 Other long term (current) drug therapy

== ENCOUNTER → 2021-05-01 | Outpatient (CLI) | payer BC ==
[~2021-05-01] MED LIST changes: +AUGM875T28 PO; +BLAC540C3 PO; +COLA100C5 PO; +CRAN450T4 PO; +DULO1CAP5; +FLAG500T PO; +LORA-930 PO; +NICO1DIS12 TD; +NICO2GUM MT; +ONDA-84 PO; +PROC10TA5 PO; +THERTAB52 PO
[2021-05-01 13:27] LABS: BASO % 0.5 % (0.0-1.0); EOS # 0.3 10^3/uL (0.0-0.5); EOS % 4.1 % (0.0-3.0); HEMATOCRIT 43.4 % (36.0-47.0); HEMOGLOBIN 13.5 g/dl (12.0-15.5); LYMPH # 1.2 10^3/uL (1.5-5.0); LYMPH % 18.5 % (24.0-44.0); MEAN CORPUSCULAR HEMOGLOBIN 27.2 pg (27.0-33.0); MEAN CORPUSCULAR HGB CONC 31.1 g/dl (32.0-36.5); MEAN CORPUSCULAR VOLUME 87.5 fl (80.0-96.0); MONO # 0.5 10^3/uL (0.0-0.8); MONO % 7.7 % (2.0-8.0); NEUTROPHILS # 4.4 10^3/uL (1.5-8.5); NEUTROPHILS % 68.9 % (36.0-66.0); PLATELET COUNT, AUTOMATED 293 10^3/uL (150-450); RED BLOOD COUNT 4.96 10^6/uL (4.00-5.40); WHITE BLOOD COUNT 6.4 10^3/uL (4.0-10.0)
[2021-05-01 13:37] LABS: INR 0.89; PROTHROMBIN TIME 12.5 SECONDS (12.7-14.5)
[2021-05-01 13:38] LABS: PARTIAL THROMBOPLASTIN TIME 29.8 SECONDS (25.9-37.0)
[2021-05-01 14:03] LABS: ALBUMIN 3.7 GM/DL (3.2-5.2); ALT/SGPT 42 U/L (12-78); BILIRUBIN,TOTAL 0.2 MG/DL (0.2-1.0); BLOOD UREA NITROGEN 11 MG/DL (7-18); CALCIUM LEVEL 9.2 MG/DL (8.5-10.1); CARBON DIOXIDE LEVEL 27 MEQ/L (21-32); CHLORIDE LEVEL 111 MEQ/L (98-107); CREATININE FOR GFR 0.57 MG/DL (0.55-1.30); GLOMERULAR FILTRATION RATE > 60.0 (>58); GLUCOSE, FASTING 76 MG/DL (70-100); NT-PRO BNP 26 PG/ML (<125); POTASSIUM SERUM 4.6 MEQ/L (3.5-5.1); SODIUM LEVEL 144 MEQ/L (136-145); TOTAL PROTEIN 7.1 GM/DL (6.4-8.2)
== END ==
LOC: M PLALAB 11:25
PROVIDERS: ATTEND Family Medicine
DX: M06.9 Rheumatoid arthritis, unspecified (principal)

== ENCOUNTER → 2021-06-15 | Outpatient (CLI) | payer BC, MEDICAID | LOC: M ONCR 08:58 | PROVIDERS: ATTEND General Practice | DX: C50.211 Malignant neoplasm of upper-inner quadrant of right female breast (principal); F17.210 Nicotine dependence, cigarettes, uncomplicated; Z79.899 Other long term (current) drug therapy ==

== ENCOUNTER 2021-06-23 13:57 | Outpatient (RCR) | payer BC, MEDICAID | END 2021-07-03 | LOC: M ONCR 13:57 | PROVIDERS: ATTEND General Practice | DX: C50.111 Malignant neoplasm of central portion of right female breast (principal) ==

== ENCOUNTER → 2021-08-03 | Outpatient (RCR) | payer BC, MEDICAID | LOC: M ONCR 07-06 15:31 | PROVIDERS: ATTEND General Practice | DX: C50.111 Malignant neoplasm of central portion of right female breast (principal) ==

== ENCOUNTER → 2022-01-31 | Outpatient (CLI) | payer BC, MEDICAID | LOC: M ONCR 14:00 | PROVIDERS: ATTEND General Practice | DX: C50.211 Malignant neoplasm of upper-inner quadrant of right female breast (principal); F17.210 Nicotine dependence, cigarettes, uncomplicated; Z79.811 Long term (current) use of aromatase inhibitors; Z79.899 Other long term (current) drug therapy; Z92.21 Personal history of antineoplastic chemotherapy; Z92.3 Personal history of irradiation ==

== ENCOUNTER → 2023-08-01 | Outpatient (CLI) | payer BC, MEDICAID, SELFPAY ==
[~2023-08-01] MED LIST changes: +VENL75CA47 PO
== END ==
LOC: M ONCR 10:32
PROVIDERS: ATTEND General Practice
DX: C50.211 Malignant neoplasm of upper-inner quadrant of right female breast (principal); F17.210 Nicotine dependence, cigarettes, uncomplicated; Z79.811 Long term (current) use of aromatase inhibitors; Z79.899 Other long term (current) drug therapy; Z92.21 Personal history of antineoplastic chemotherapy; Z92.3 Personal history of irradiation